=== PATIENT | male | born 1970 | race Caucasian/White ===

== ENCOUNTER 2020-09-27 09:04 | Outpatient (REF) | payer BC, SELFPAY ==
[2020-09-27 11:03] LABS: MANUAL DIFF FLAG NO
[2020-09-27 11:16] LABS: Basophils Absolute Auto 0.1 X10*3/uL (0.0-0.2); Basophils Percent Auto 1.1 % (0-2); Eosinophils Absolute Auto 0.2 X10*3/uL (0.0-0.4); Eosinophils Percent Auto 3.5 % (0-4); Hematocrit 46.4 % (42-52); Hemoglobin 15.8 g/dl (14.0-18.0); Imm Gran Abs Auto 0.02 X10*3/uL (0.00-0.03); Imm Gran Pct Auto 0.3 % (0.0-0.4); Lymphocytes Absolute Auto 2.7 X10*3/uL (1.2-4.9); Lymphocytes Percent Auto 42.1 % (20-40); Mean Corpuscular HGB Conc 34.1 g/dl (31.0-36.0); Mean Platelet Volume 12.8 fL (9.4-12.4); Monocytes Absolute Auto 0.5 X10*3/uL (0.1-1.2); Monocytes Percent Auto 7.6 % (2-11); Neutrophils Absolute Auto 2.9 X10*3/uL (2.0-8.3); Neutrophils Percent Auto 45.4 % (45-73); Platelet Count 161 X10*3/uL (160-400); White Blood Count 6.3 X10*3/uL (4.8-10.8)
[2020-09-27 11:48] LABS: Anion Gap 14 (12-20); Blood Urea Nitrogen 18 mg/dL (9-16); Calcium 9.2 mg/dL (8.4-10.2); Carbon Dioxide 27 mmol/L (22-29); Chloride 103 mmol/L (96-108); Cholesterol 199 mg/dL; Estimated Glomerular Filt Rate > 60; Glucose Fasting 195 mg/dL (60-99); HDL Cholesterol 50 mg/dL; LDL Cholesterol Calculated 123 mg/dl; Potassium 4.5 mmol/l (3.3-5.1); Sodium 139 mmol/L (135-145); Triglycerides 133 mg/dL
[2020-09-27 11:56] LABS: TSH reflex Free T4 0.59 mIU/mL (0.32-4.0)
== END 2020-09-27 09:05 | disposition home or self-care (01) ==
LOC: HO.HMGCLDS 09:04
PROVIDERS: PCP Internal Medicine; Visit Provider Internal Medicine
DX: R03.0 Elevated blood-pressure reading, without diagnosis of hypertension (principal); Z76.89 Persons encountering health services in other specified circumstances
CPT/HCPCS: 36415; 80048; 80061; 84443; 85025

== ENCOUNTER 2020-10-03 10:00 | Outpatient (REF) | payer BC, SELFPAY ==
[2020-10-03 11:30] LABS: Estimated Average Glucose 189 mg/dL; Hemoglobin A1c % 8.2 %
== END 2020-10-03 10:01 | disposition home or self-care (01) ==
LOC: HO.HMGCLDS 10:00
PROVIDERS: PCP Internal Medicine; Visit Provider Internal Medicine
DX: R73.01 Impaired fasting glucose (principal)
CPT/HCPCS: 83036

== ENCOUNTER 2021-03-18 10:26 | Outpatient (REF) | payer BC, SELFPAY ==
[2021-03-18 11:28] LABS: MANUAL DIFF FLAG NO
[2021-03-18 11:42] LABS: Basophils Absolute Auto 0.1 X10*3/uL (0.0-0.2); Basophils Percent Auto 0.7 % (0-2); Eosinophils Absolute Auto 0.2 X10*3/uL (0.0-0.4); Eosinophils Percent Auto 1.9 % (0-4); Hematocrit 46.8 % (42-52); Hemoglobin 16.1 g/dl (14.0-18.0); Imm Gran Abs Auto 0.03 X10*3/uL (0.00-0.03); Imm Gran Pct Auto 0.3 % (0.0-0.4); Lymphocytes Absolute Auto 2.3 X10*3/uL (1.2-4.9); Lymphocytes Percent Auto 26.4 % (20-40); Mean Corpuscular HGB Conc 34.4 g/dl (31.0-36.0); Mean Corpuscular Hemoglobin 30.3 pg (27.0-33.0); Mean Platelet Volume 12.9 fL (9.4-12.4); Monocytes Absolute Auto 0.4 X10*3/uL (0.1-1.2); Monocytes Percent Auto 4.7 % (2-11); Neutrophils Absolute Auto 5.8 X10*3/uL (2.0-8.3); Platelet Count 141 X10*3/uL (160-400); Red Blood Count 5.32 X10*6/uL (4.60-5.80); Red Cell Distribution Width 12.6 % (11.0-16.0); White Blood Count 8.7 X10*3/uL (4.8-10.8)
[2021-03-18 12:19] LABS: Alanine Aminotransferase 18 U/L (0-40); Albumin Level 4.4 g/dL (3.5-5.0); Alkaline Phosphatase 78 U/L (39-117); Anion Gap 16 (12-20); Aspartate Amino Transferase 17 U/L (5-37); Bilirubin Total 1.7 mg/dL (0.0-1.0); Blood Urea Nitrogen 18 mg/dL (9-16); Calcium 10.1 mg/dL (8.4-10.2); Carbon Dioxide 27 mmol/L (22-29); Chloride 101 mmol/L (96-108); Cholesterol 197 mg/dL; Estimated Glomerular Filt Rate > 60; Glucose Fasting 378 mg/dL (60-99); HDL Cholesterol 60 mg/dL; LDL Cholesterol Calculated 113 mg/dl; Potassium 4.6 mmol/L (3.3-5.1); Sodium 139 mmol/L (135-145); Total Protein 7.5 g/dL (6.5-8.0); Triglycerides 122 mg/dL
== END 2021-03-18 10:27 | disposition home or self-care (01) ==
LOC: HO.HMGCLDS 10:26
PROVIDERS: PCP Internal Medicine; Visit Provider Internal Medicine
DX: I10 Essential (primary) hypertension (principal); L29.9 Pruritus, unspecified; R21 Rash and other nonspecific skin eruption; R73.01 Impaired fasting glucose
CPT/HCPCS: 36415; 80053; 80061; 85025

== ENCOUNTER 2025-09-28 09:56 | Outpatient (REF) | payer BC, SELFPAY ==
--- OUTSIDE RECORDS SUMMARY | 2025-09-28 20:22 | XMS_ITS | Patient Health Record ---
Author Organization [facility] Address [address] [place] [address] Care Team Providers Care Roundsman Name Role Phone AGUSTO REY Primary Care Provider Karl Zhang Unavailable [phone] Allergies No Known Allergies Results Component Value Reference Range Notes Comp. Metabolic Panel (14)-3 [id number] Reviewed date:02/09/2025 01:49:10 PM Interpretation: Performing Lab:[facility], [address] [facility], [place], Phone - [phone], Director - Sharon Notes/Report: Glucose 120 70-99 mg/dL BUN 12 6-24 mg/dL Creatinine 1.03 0.76-1.27 mg/dL eGFR 85 >59 mL/min/1.73 BUN/Creatinine Ratio 12 9-20 Sodium 137 134-144 mmol/L Potassium 4.4 3.5-5.2 mmol/L Chloride 99 96-106 mmol/L Carbon Dioxide, Total 20 20-29 mmol/L Calcium 10.0 8.7-10.2 mg/dL Protein, Total 7.1 6.0-8.5 g/dL Albumin 4.6 3.8-4.9 g/dL Globulin, Total 2.5 1.5-4.5 g/dL Bilirubin, Total 0.5 0.0-1.2 mg/dL Alkaline Phosphatase 66 44-121 IU/L AST (SGOT) 18 0-40 IU/L ALT (SGPT) 15 0-44 IU/L Lipid Panel-[id number] Reviewed date:02/09/2025 01:49:19 PM Interpretation: Performing Lab:[facility] [address] [place] [address], Phone - [phone], [facility] Notes/Report: Cholesterol, Total 133 100-199 mg/dL Triglycerides 95 0-149 mg/dL HDL Cholesterol 52 >39 mg/dL VLDL Cholesterol Merrick 18 5-40 mg/dL LDL Chol Calc (NIH) 63 0-99 mg/dL TSH+Free [id number] Reviewed date:02/09/2025 01:49:27 PM Interpretation: Performing Lab:[facility] [address] [place] [address], Phone - [phone], Director - Berkleyy Notes/Report: TSH 1.730 0.450-4.500 uIU/mL T4,Free(Direct) 1.30 0.82-1.77 ng/dL Magnesium-[id number] Reviewed date:02/09/2025 11:13:45 AM Interpretation: Performing Lab:[facility] [address] [place] [address], Phone - [phone], Director - Sahron Notes/Report: Magnesium 2.3 1.6-2.3 mg/dL Hemoglobin [id number] Reviewed date:02/09/2025 11:13:37 AM Interpretation: Performing Lab:[facility] [address] [place] [address], Phone - [phone], Director - [facility] Notes/Report: Hemoglobin A1c 7.2 4.8-5.6 % . Prediabetes: 5.7 - 6.4 Diabetes: >6.4 Glycemic control for adults with diabetes: <7.0 Lipid Panel-[id number] Reviewed date:08/21/2025 07:41:14 AM Interpretation: Performing Lab:[facility] [address] [place] [address], Phone - [phone], Director - Berkleyy Notes/Report: Cholesterol, Total 138 100-199 mg/dL Triglycerides 131 0-149 mg/dL HDL Cholesterol 55 >39 mg/dL VLDL Cholesterol Merrick 23 5-40 mg/dL LDL Chol Calc (NIH) 60 0-99 mg/dL Albumin/Creatinine Ratio,Uri ne-[id number] Reviewed date:08/21/2025 07:41:12 AM Interpretation: Performing Lab:[facility] [address] [place] [address], Phone - [phone], Director - [facility] Notes/Report: Creatinine, Urine TNP Test not performed. Patient was unable to provide a self-collected specimen for the requested testing. The following test(s) were not performed: Albumin, Urine TNP Test not perf ormed Hemoglobin [id number] Reviewed date:08/21/2025 07:41:08 AM Interpretation: Performing Lab:[facility], [address] [facility], Phone - [phone], Director - Sharon Notes/Report: Hemoglobin A1c 7.1 4.8-5.6 % . Prediabetes: 5.7 - 6.4 Diabetes: >6.4 Glycemic control for adults with diabetes: <7.0 Request Problem TNP Test not performed. Patient was unable to provide a self-collected specimen for the requested testing. The following test(s) were not performed: TEST: [id number] Albumin/Creatinine Ratio,Urine PROSTATE SPECIFIC ANTIGEN DI AGNOSTIC Reviewed date:02/24/2025 11:49:13 AM Interpretation: Performing Lab: Notes/Report: The Siemens Advia Centaur Chemiluminescent Immunoassay is used. Results obtained with different assay methods or kits cannot be used interchangeably. Results cannot be interpreted as absolute evidence of the presence or absence of malignant disease. PSA 0.97 0.00-4.00 ng/mL Comp. Metabolic Panel (14)-3 [id number] Reviewed date:08/21/2025 07:41:23 AM Interpretation: Performing [facility], [address] [facility], Phone - [phone], Director - Sharon Notes/Report: Glucose 165 70-99 mg/dL BUN 13 6-24 mg/dL Creatinine 1.00 0.76-1.27 mg/dL eGFR 88 >59 mL/min/1.73 BUN/Creatinine Ratio 13 9-20 Sodium 135 134-144 mmol/L Potassium 4.6 3.5-5.2 mmol/L Chloride 97 96-106 mmol/L Carbon Dioxide, Total 24 20-29 mmol/L Calcium 10.4 8.7-10.2 mg/dL Protein, Total 7.5 6.0-8.5 g/dL Albumin 4.8 3.8-4.9 g/dL Globulin, Total 2.7 1.5-4.5 g/dL Bilirubin, Total 1.8 0.0-1.2 mg/dL Alkaline Phosphatase 67 47-123 IU/L AST (SGOT) 22 0-40 IU/L ALT (SGPT) 15 0-44 IU/L Comp. Metabolic Panel (14)-3 Reviewed date:11/19/2024 10:19:03 PM Interpretation: Performing Lab:[facility], [address] [place] [address], Phone - [phone], Director - [facility] Notes/Report: Glucose 122 70-99 mg/dL BUN 15 6-24 mg/dL Creatinine 1.06 0.76-1.27 mg/dL eGFR 82 >59 mL/min/1.73 BUN/Creatinine Ratio 14 9-20 Sodium 138 134-144 mmol/L Potassium 5.1 3.5-5.2 mmol/L Chloride 100 96-106 mmol/L Carbon Dioxide, Total 23 20-29 mmol/L Calcium 10.1 8.7-10.2 mg/dL Protein, Total 7.5 6.0-8.5 g/dL Albumin 4.6 3.8-4.9 g/dL Globulin, Total 2.9 1.5-4.5 g/dL Bilirubin, Total 0.8 0.0-1.2 mg/dL Alkaline Phosphatase 64 44-121 IU/L AST (SGOT) 21 0-40 IU/L ALT (SGPT) 12 0-44 IU/L Lipid Panel-[id number] Reviewed date:11/13/2024 10:50:24 PM Interpretation: Performing [facility], [address] [place] [address], Phone - [phone], Director - Berkleyy Notes/Report: Cholesterol, Total 117 100-199 mg/dL Triglycerides 95 0-149 mg/dL HDL Cholesterol 48 >39 mg/dL VLDL Cholesterol Merrick 18 5-40 mg/dL LDL Chol Calc (NIH) 51 0-99 mg/dL CBC With Differential/Platel et-[id number] Reviewed date:11/13/2024 10:51:27 PM Interpretation: Performing Lab:[facility], [address] [facility], Phone - [phone], Director - Berkleyy Notes/Report: WBC 7.1 3.4-10.8 x10E3/uL RBC 4.64 4.14-5.80 x10E6/uL Hemoglobin 13.5 13.0-17.7 g/dL Hematocrit 41.5 37.5-51.0 % MCV 89 79-97 fL MCH 29.1 26.6-33.0 pg MCHC 32.5 31.5-35.7 g/dL RDW 15.7 11.6-15.4 % Platelets 168 150-450 x10E3/uL Neutrophils 55 Not Estab. % Lymphs 33 Not Estab. % Monocytes 9 Not Estab. % Eos 2 Not Estab. % Basos 1 Not Estab. % Neutrophils (Absolute) 3.9 1.4-7.0 x10E3/uL Lymphs (Absolute) 2.3 0.7-3.1 x10E3/uL Monocytes(Absolute) 0.7 0.1-0.9 x10E3/uL Eos (Absolute) 0.1 0.0-0.4 x10E3/uL Baso (Absolute) 0.1 0.0-0.2 x10E3/uL Immature Granulocytes 0 Not Estab. % Immature Grans (Abs) 0.0 0.0-0.1 x10E3/uL Hemoglobin [id number] Reviewed date:12/05/2024 11:22:00 AM Interpretation: Performing Lab:[facility] [place], [address] [place] [address] Avenue, [place], Phone - [phone], Director - Sharon Notes/Report: Hemoglobin A1c 7.4 4.8-5.6 % . Prediabetes: 5.7 - 6.4 Diabetes: >6.4 Glycemic control for adults with diabetes: <7.0 Reason For Referral Reason ESS score of 4, stop Bang 5. Sleep study Diagnosis 1 Fatigue, unspecified type (R53.83) Referral Organization [facility] Referring Provider First Name Karl Referring Provider Last Name Leatha Referred Provider Specialty Sleep Medici ne General Notes Referral faxed to [facility]. Please call patient to Chel barry Christy 12/08/2024 09:53:57 AM > Referral Priority Routine Reason PLEASE EVALUATE AND TREAT Please evaluate and treat Diagnosis 1 Seasonal allergic rh initis due to pollen (J30.1) Referral Organization [facility] Referring Provider First Name Karl Referring Provider Last Name Leatha Referred Provider Specialty Dermatology General Notes Please call the rony ent to schedule the appointment, Encounter created and SMS sent to the pt.Clayton Charmain 05/23/2025 04:40:27 PM > Referral Priority Routine Reason Please evaluate and treat Please evaluate and treat Diagnosis 1 Gastritis, unspecifi ed, without bleeding (K29.70) Referral Organization [facility] Referring Provider First Name Tessieseveriano Referring Provider Last Name Leatha Referred Provider Specialty Gastroentero logy General Notes Please call the rony ent to schedule the appointment, Encounter created and SMS sent to the pt.Clayton Charmain 07/03/2025 03:34:08 PM > Referral Priority Routine Medications Medication SIG (Take, Route, Frequency, Duration) Notes Start Date End Date Status Metoprolol Succinate ER 25 MG 1 tablet Orally Once a day; Duration: 90 day(s) Not-Taking Fluticasone Propionate 50 MCG/ACT 1 spray in each nostril Nasally Twice a day; Duration: 30 days 11/10/2024 Not-Taking Albuterol Sulfate HFA 108 (90 Base) MCG/ACT 1 puff as needed Inhalation every 4 hrs; Duration: 30 days 11/10/2024 Not-Taking FreeStyle Lite w/Device check blood suga r once a day; Duration: 30 days 02/05/2022 Active Rosuvastatin Calcium 10 MG 1 tablet Orally Once a day; Duration: 30 days 08/07/2024 Active Farxiga 10 MG 1 tablet Orally Once a day; Duration: 30 days 08/07/2024 Active Lisinopril-hydroCHLOROthi azide 20-12.5 MG 1 tablet Orally Once a day; Duration: 90 days 08/14/2024 Active Benzonatate 100 MG 1 capsule as needed Orally Three times a day; Duration: 7 days 08/03/2024 Not-Taking Mucinex 600 MG 1 tablet as needed Orally every 12 hrs; Duration: 14 days 11/10/2024 Not-Taking metFORMIN HCl 1000 MG TAKE 1 TABLET BY M OUTH TWICE DAILY WITH A MEAL; Duration: 90 Active FreeStyle Lancets - 1 lancet once a day; Duration: 90 days 02/05/2022 Active FreeStyle Lite Test - 1 strip In Vitro o nce a day; Duration: 90 days 02/05/2022 Active Immunizations Vaccine Route Administration Date Status Comme nts Flublok 87974 IM Intramuscular 08/07/2024 Administered Tdap IM Intramuscular 05/27/2023 Administered Social History Tobacco Use: Social History Observation Description Date Details (start date - stop date) Former Smoker NA - NA Tobacco Use/Smoking Question Answer Notes Are you a former smoker How long has it been since you last smoked? 1-5 years Alcohol Screen (Audit-C) Question Answer Notes Did you have a drink contain ing alcohol in the past year? Yes How often did you have a dri nk containing alcohol in the past year? 2 to 4 times a month (2 points) How many drinks did you have on a typical day when you were drinking in the past year? 1 or 2 drinks (0 point) Points 2 Interpretation Negative Section Notes: Quit smoking 2020, sober sin ce 11/2021 Quit smoking 2020, sober sin ce 11/2021 Quit smoking 2020 Quit smoking 2020 Quit smoking 2020 Quit smoking 2020, sober sin ce 11/2021 Quit smoking 2020 Quit smoking 2020 Quit smoking 2020 Quit smoking 2020 Quit smoking 2020 Quit smoking 2020 Problems Problem Type SNOMED Code ICD Code Onset Dates Problem Status W/U Status Risk Notes Problem Type II diabetes mellitus without complication (578369677) Type 2 diabetes mellitus without complications (E11.9) Active confirmed Problem Chronic alcoholism in remission (173341635) Alcohol dependence, in remission (F10.21) Active confirmed Problem Essential hypertension (05489264) Essential (primary) hypertension (I10) Active confirmed Problem Gastroduodenitis (693950265) Gastritis, unspecified, without bleeding (K29.70) Active confirmed Problem Calculus of kidney (30527875) Calculus of kidney (N20.0) Active confirmed Problem Obstructive sleep apnea (35307875) Obstructive sleep apnea (G47.33) Active confirmed Problem Mixed hyperlipidemia (886009492) Hyperlipidemia, mixed (E78.2) Active confirmed Vital Signs Heart Rate 67 /min 08/22/2025 Temperature 97.6 degrees Fahrenheit 08/22/2025 Oximetry 99 % 08/22/2025 Blood pressure diastolic 64 mm Hg 08/22/2025 Height 72 in 08/22/2025 Blood pressure systolic 110 mm Hg 08/22/2025 Weight 190.71 lbs 08/22/2025 BMI 25.86 kg/m2 08/22/2025 Encounters Encounter Location Date Provider Diagnosis [address] [place] [address] 11/10/2024 Karl Martinesum Viral URI J06.9 ; Grade I hemorrhoids K64.0 ; Essential (primary) hypertension I10 and Type 2 diabetes mellitus without complications E11.[address] [place] [address] 12/07/2024 Ghadeer Aidanloum Type 2 diabetes mellitus without complications E11.9 ; Essential (primary) hypertension I10 ; Hyperlipidemia, mixed E78.2 ; Snoring R06.83 and Fatigue, unspecified type R53.[address] [place] [address] 02/08/2025 Ghadeseveriano Bermudezloum Type 2 diabetes mellitus without complications E11.9 ; Essential (primary) hypertension I10 ; Hyperlipidemia, mixed E78.2 ; Obstructive sleep apnea G47.33 and Palpitation R00.[address] [place] [address] 05/23/2025 Demondadeseveriano Bermudezloum Type 2 diabetes mellitus without complications E11.9 ; Essential (primary) hypertension I10 ; Hyperlipidemia, mixed E78.2 and Obstructive sleep apnea G47.[address] [place] [address] 08/22/2025 Demondadeer Aidanloum Type 2 diabetes mellitus without complications E11.9 ; Essential (primary) hypertension I10 ; Hyperlipidemia, mixed E78.2 and Obstructive sleep apnea G47.[address] [place] [address] 12/05/2024 [facility] Bermudez[facility]m [address] [place] [address] 12/07/2024 [facility] [address] [place] [address] 12/08/2024 LIZ GUL [address] [place] [address] 02/12/2025 AGUSTO REY [address] [place] [address] 05/10/2025 LIZNOAH RYE Type 2 diabetes mellitus without complications E11.[address] [place] [address] 05/23/[address] [place] [address] 07/03/[address] [place] [address] 08/22/2025 Karl Zhang Type 2 diabetes mellitus without complications E11.[address] [place] [address] 07/02/2025 Karl Zhang [address] [place] [address] 07/09/2025 AGUSTO REY Assessments Encounter Date Diagnosis (ICD Code) Assessment Notes Treatment Notes Treatment Clinical Notes Section Notes 11/10/2024 Viral URI (ICD-10 - J06.9) Mr. Medina is a 54-year-old gentleman with DM2, hypertension, seasonal allergies and alcohol dependence in remission here for cold sxs. Plan as follows: Viral URI: - Sxs are consistent with Viral URI. His sxs are improving. PE is unremarkable. Lungs CTAB. No facial tenderness. Ears with no signs of infection is noted. Started patient on mucinex, Albuterol and Fluticasone. If sxs worsen or last for more than 10 days then we will consider abx treatment Hemorrhoid: - Per record review, he has history of hemorrhoids. he endorses BRPR on wiping. He denies constipation. There was a question of rectum adenocarcinoma [place] but he states that he had Cscope with bx performed at [facility] and was negative. We will obtain record for review. Check CBC - STarted patient on Anusol cream. SItz bath is advised. Diet modification recommended. HTN: - Blood pressure is wnl. Continue on the same regimen. Check comp T2DM - Previous A1c of 7.9. Goal below 7. CHeck a1c and make adjustment accordingly. HLD: lipid panel abnormal, rosuvastatin was increased from 5 to 10 back in july 2024. Check lipid panel again. I have rendered the services for this patient under direct supervision of Dr. Rey, who did not see the patient but was available upon request 11/10/2024 Grade I hemorrhoids (ICD-10 - K64.0) Mr. Medina is a 54-year-old gentleman with DM2, hypertension, seasonal allergies and alcohol dependence in remission here for cold sxs. Plan as follows: Viral URI: - Sxs are consistent with Viral URI. His sxs are improving. PE is unremarkable. Lungs CTAB. No facial tenderness. Ears with no signs of infection is noted. Started patient on mucinex, Albuterol and Fluticasone. If sxs worsen or last for more than 10 days then we will consider abx treatment Hemorrhoid: - Per record review, he has history of hemorrhoids. he endorses BRPR on wiping. He denies constipation. There was a question of rectum adenocarcinoma [place] but he states that he had Cscope with bx performed at [facility] and was negative. We will obtain record for review. Check CBC - STarted patient on Anusol cream. SItz bath is advised. Diet modification recommended. HTN: - Blood pressure is wnl. Continue on the same regimen. Check comp T2DM - Previous A1c of 7.9. Goal below 7. CHeck a1c and make adjustment accordingly. HLD: lipid panel abnormal, rosuvastatin was increased from 5 to 10 back in july 2024. Check lipid panel again. I have rendered the services for this patient under direct supervision of Dr. Rey, who did not see the patient but was available upon request 12/07/2024 Type 2 diabetes mellitus without complications (ICD-10 - E11.9) Mr. Medina is a 54-year-old gentleman with DM2, hypertension, seasonal allergies and alcohol dependence in remission here to discuss Recent blood work. Plan as follows Type 2 diabetes - He has only been taking metformin 1000mg twice daily. He was offered the go but he thought that the medication is for hypertension thus he was continued on his own. His recent A1c is 7.4 previously was 7.7 which has improved. He is noncompliant with diet. I resumed patient On Farxiga benefits of the medication has been discussed. Follows with opthalm on regular basis. Foot care discussed. Check A1c in 3 months Hypertension - Blood pressure is well controlled. Continue same regimen. Advised salt intake with increasing hydration and weight loss Hyperlipidemia - LDL of 56. It is within goal. Continue on the same regimen Fatigue/snoring - ESS score of 4, STOP BANG of 5. Referred patient to sleep study to rule out obstructive sleep apnea. I would also rule out any vitamin deficiency, thyroid dysfunction. Recent CBC is within normal limits. I have rendered the services for this patient under direct supervision of Dr. Rey, who did not see the patient but was available upon request 02/08/2025 Type 2 diabetes mellitus without complications (ICD-10 - E11.9) Mr. Medina is a 54-year-old gentleman with DM2, hypertension, seasonal allergies and alcohol dependence in remission here for follow-up. Plan as follows Type 2 diabetes - He has only been taking metformin 1000mg twice daily and farxiga 10mg recent A1c is 7.4 previously was 7.7 which has improved. He is noncompliant with diet. Follows with opthalm on regular basis. Foot care discussed. Check A1c. Hypertension - Blood pressure is well controlled. Continue same regimen. Advised salt intake with increasing hydration and weight loss Hyperlipidemia - Previous lipid panel WNL. Continue on Rosuvastatin 10mg at bedtime SUN: - Patient is recommended to follow with sleep medicine clinic to obtain PAP machine. Compliance is recommended Palpitation: - EKG is done in the office today with heart rate of 63 bpm, sinus rhythm. No ST elevation or depression. No Bundle branch block. Will also obtain a thyroid and magnesium level. We will also get a Holter monitor test to rule out any arrhythmias. I have rendered the services for this patient under direct supervision of Dr. Rey, who did not see the patient but was available upon request 05/10/2025 Type 2 diabetes mellitus without complications (ICD-10 - E11.9) 05/23/2025 Type 2 diabetes mellitus without complications (ICD-10 - E11.9) Mr. Medina is a 54-year-old gentleman with DM2, hypertension, seasonal allergies and alcohol dependence in remission here for follow-up. Plan as follows Type 2 diabetes - Improved A1c of 7.2 and fasting blood glucose of 122. He is on the right medication. Continue Metformin 1000 mg twice a day as farxiga 10 mg once a day. I have discussed with the patient G LP 1 if A1c is above 7 However he is not interested at this point in adding any medication into his current regimen and who prefers to adjust his diet. I have discussed the complications of uncontrolled diabetes as patient does not seem to understand the seriousness of diabetes. We had a long discussion about Potential complications and treatment of this condition. He is noncompliant with diet. Follows with opthalm on regular basis. Foot care discussed. Check A1c. Hypertension - Blood pressure is well controlled. Continue same regimen. Advised salt intake with increasing hydration and weight loss Hyperlipidemia - Previous lipid panel WNL. Continue on Rosuvastatin 10mg at bedtime SUN: - Patient is recommended to follow with sleep medicine clinic to obtain Nasal cannula as he is not able to tolerate the CPAP. Compliance is recommended, Complications of SUN discussed I have rendered the services for this patient under direct supervision of Dr. Rey, who did not see the patient but was available upon request 08/22/2025 Type 2 diabetes mellitus without complications (ICD-10 - E11.9) 08/22/2025 Type 2 diabetes mellitus without complications (ICD-10 - E11.9) Mr. Medina is a 54-year-old gentleman with DM2, hypertension, seasonal allergies and alcohol dependence in remission here for follow-up. Plan as follows Type 2 diabetes - Improved A1c of 7.1. He is on the right medication. Continue Metformin 1000 mg twice a day as farxiga 10 mg once a day. He prefers to continue with diet modification. I have discussed the complications of uncontrolled diabetes as patient does not seem to understand the seriousness of diabetes. We had a long discussion about Potential complications and treatment of this condition. He is noncompliant with diet. Follows with opthalm on regular basis. Foot care discussed. Check A1c. Hypertension - Blood pressure is well controlled. Continue same regimen. Advised salt intake with increasing hydration and weight loss Hyperlipidemia - Previous lipid panel WNL. Continue on Rosuvastatin 10mg at bedtime SUN: - Patient is recommended to follow with sleep medicine clinic to obtain Nasal cannula as he is not able to tolerate the CPAP. Compliance is recommended, Complications of SUN discussed recent bloodwork discussed with the patient I have rendered the services for this patient under direct supervision of Dr. Rey, who did not see the patient but was available upon request 08/22/2025 Essential (primary) hypertension (ICD-10 - I10) Mr. Medina is a 54-year-old gentleman with DM2, hypertension, seasonal allergies and alcohol dependence in remission here for follow-up. Plan as follows Type 2 diabetes - Improved A1c of 7.1. He is on the right medication. Continue Metformin 1000 mg twice a day as farxiga 10 mg once a day. He prefers to continue with diet modification. I have discussed the complications of uncontrolled diabetes as patient does not seem to understand the seriousness of diabetes. We had a long discussion about Potential complications and treatment of this condition. He is noncompliant with diet. Follows with opthalm on regular basis. Foot care discussed. Check A1c. Hypertension - Blood pressure is well controlled. Continue same regimen. Advised salt intake with increasing hydration and weight loss Hyperlipidemia - Previous lipid panel WNL. Continue on Rosuvastatin 10mg at bedtime SUN: - Patient is recommended to follow with sleep medicine clinic to obtain Nasal cannula as he is not able to tolerate the CPAP. Compliance is recommended, Complications of SUN discussed recent bloodwork discussed with the patient I have rendered the services for this patient under direct supervision of Dr. Rey, who did not see the patient but was available upon request 05/23/2025 Essential (primary) hypertension (ICD-10 - I10) Mr. Medina is a 54-year-old gentleman with DM2, hypertension, seasonal allergies and alcohol dependence in remission here for follow-up. Plan as follows Type 2 diabetes - Improved A1c of 7.2 and fasting blood glucose of 122. He is on the right medication. Continue Metformin 1000 mg twice a day as farxiga 10 mg once a day. I have discussed with the patient G LP 1 if A1c is above 7 However he is not interested at this point in adding any medication into his current regimen and who prefers to adjust his diet. I have discussed the complications of uncontrolled diabetes as patient does not seem to understand the seriousness of diabetes. We had a long discussion about Potential complications and treatment of this condition. He is noncompliant with diet. Follows with opthalm on regular basis. Foot care discussed. Check A1c. Hypertension - Blood pressure is well controlled. Continue same regimen. Advised salt intake with increasing hydration and weight loss Hyperlipidemia - Previous lipid panel WNL. Continue on Rosuvastatin 10mg at bedtime SUN: - Patient is recommended to follow with sleep medicine clinic to obtain Nasal cannula as he is not able to tolerate the CPAP. Compliance is recommended, Complications of SUN discussed I have rendered the services for this patient under direct supervision of Dr. Rey, who did not see the patient but was available upon request 11/10/2024 Essential (primary) hypertension (ICD-10 - I10) Mr. Medina is a 54-year-old gentleman with DM2, hypertension, seasonal allergies and alcohol dependence in remission here for cold sxs. Plan as follows: Viral URI: - Sxs are consistent with Viral URI. His sxs are improving. PE is unremarkable. Lungs CTAB. No facial tenderness. Ears with no signs of infection is noted. Started patient on mucinex, Albuterol and Fluticasone. If sxs worsen or last for more than 10 days then we will consider abx treatment Hemorrhoid: - Per record review, he has history of hemorrhoids. he endorses BRPR on wiping. He denies constipation. There was a question of rectum adenocarcinoma [place] he states that he had Cscope with bx performed at [facility] and was negative. We will obtain record for review. Check CBC - STarted patient on Anusol cream. SItz bath is advised. Diet modification recommended. HTN: - Blood pressure is wnl. Continue on the same regimen. Check comp T2DM - Previous A1c of 7.9. Goal below 7. CHeck a1c and make adjustment accordingly. HLD: lipid panel abnormal, rosuvastatin was increased from 5 to 10 back in july 2024. Check lipid panel again. I have rendered the services for this patient under direct supervision of Dr. Rey, who did not see the patient but was available upon request 02/08/2025 Essential (primary) hypertension (ICD-10 - I10) Mr. Medina is a 54-year-old gentleman with DM2, hypertension, seasonal allergies and alcohol dependence in remission here for follow-up. Plan as follows Type 2 diabetes - He has only been taking metformin 1000mg twice daily and farxiga 10mg recent A1c is 7.4 previously was 7.7 which has improved. He is noncompliant with diet. Follows with opthalm on regular basis. Foot care discussed. Check A1c. Hypertension - Blood pressure is well controlled. Continue same regimen. Advised salt intake with increasing hydration and weight loss Hyperlipidemia - Previous lipid panel WNL. Continue on Rosuvastatin 10mg at bedtime SUN: - Patient is recommended to follow with sleep medicine clinic to obtain PAP machine. Compliance is recommended Palpitation: - EKG is done in the office today with heart rate of 63 bpm, sinus rhythm. No ST elevation or depression. No Bundle branch block. Will also obtain a thyroid and magnesium level. We will also get a Holter monitor test to rule out any arrhythmias. I have rendered the services for this patient under direct supervision of Dr. Rey, who did not see the patient but was available upon request 12/07/2024 Essential (primary) hypertension (ICD-10 - I10) Mr. Medina is a 54-year-old gentleman with DM2, hypertension, seasonal allergies and alcohol dependence in remission here to discuss Recent blood work. Plan as follows Type 2 diabetes - He has only been taking metformin 1000mg twice daily. He was offered the go but he thought that the medication is for hypertension thus he was continued on his own. His recent A1c is 7.4 previously was 7.7 which has improved. He is noncompliant with diet. I resumed patient On Farxiga benefits of the medication has been discussed. Follows with opthalm on regular basis. Foot care discussed. Check A1c in 3 months Hypertension - Blood pressure is well controlled. Continue same regimen. Advised salt intake with increasing hydration and weight loss Hyperlipidemia - LDL of 56. It is within goal. Continue on the same regimen Fatigue/snoring - ESS score of 4, STOP BANG of 5. Referred patient to sleep study to rule out obstructive sleep apnea. I would also rule out any vitamin deficiency, thyroid dysfunction. Recent CBC is within normal limits. I have rendered the services for this patient under direct supervision of Dr. Rey, who did not see the patient but was available upon request 11/10/2024 Type 2 diabetes mellitus without complications (ICD-10 - E11.9) Mr. Medina is a 54-year-old gentleman with DM2, hypertension, seasonal allergies and alcohol dependence in remission here for cold sxs. Plan as follows: Viral URI: - Sxs are consistent with Viral URI. His sxs are improving. PE is unremarkable. Lungs CTAB. No facial tenderness. Ears with no signs of infection is noted. Started patient on mucinex, Albuterol and Fluticasone. If sxs worsen or last for more than 10 days then we will consider abx treatment Hemorrhoid: - Per record review, he has history of hemorrhoids. he endorses BRPR on wiping. He denies constipation. There was a question of rectum adenocarcinoma [place] but he states that he had Cscope with bx performed at [facility] and was negative. We will obtain record for review. Check CBC - STarted patient on Anusol cream. SItz bath is advised. Diet modification recommended. HTN: - Blood pressure is wnl. Continue on the same regimen. Check comp T2DM - Previous A1c of 7.9. Goal below 7. CHeck a1c and make adjustment accordingly. HLD: lipid panel abnormal, rosuvastatin was increased from 5 to 10 back in july 2024. Check lipid panel again. I have rendered the services for this patient under direct supervision of Dr. Rey, who did not see the patient but was available upon request 12/07/2024 Hyperlipidemia, mixed (ICD-10 - E78.2) Mr. Medina is a 54-year-old gentleman with DM2, hypertension, seasonal allergies and alcohol dependence in remission here to discuss Recent blood work. Plan as follows Type 2 diabetes - He has only been taking metformin 1000mg twice daily. He was offered the go but he thought that the medication is for hypertension thus he was continued on his own. His recent A1c is 7.4 previously was 7.7 which has improved. He is noncompliant with diet. I resumed patient On Farxiga benefits of the medication has been discussed. Follows with opthalm on regular basis. Foot care discussed. Check A1c in 3 months Hypertension - Blood pressure is well controlled. Continue same regimen. Advised salt intake with increasing hydration and weight loss Hyperlipidemia - LDL of 56. It is within goal. Continue on the same regimen Fatigue/snoring - ESS score of 4, STOP BANG of 5. Referred patient to sleep study to rule out obstructive sleep apnea. I would also rule out any vitamin deficiency, thyroid dysfunction. Recent CBC is within normal limits. I have rendered the services for this patient under direct supervision of Dr. Rey, who did not see the patient but was available upon request 02/08/2025 Hyperlipidemia, mixed (ICD-10 - E78.2) Mr. Medina is a 54-year-old gentleman with DM2, hypertension, seasonal allergies and alcohol dependence in remission here for follow-up. Plan as follows Type 2 diabetes - He has only been taking metformin 1000mg twice daily and farxiga 10mg recent A1c is 7.4 previously was 7.7 which has improved. He is noncompliant with diet. Follows with opthalm on regular basis. Foot care discussed. Check A1c. Hypertension - Blood pressure is well controlled. Continue same regimen. Advised salt intake with increasing hydration and weight loss Hyperlipidemia - Previous lipid panel WNL. Continue on Rosuvastatin 10mg at bedtime SUN: - Patient is recommended to follow with sleep medicine clinic to obtain PAP machine. Compliance is recommended Palpitation: - EKG is done in the office today with heart rate of 63 bpm, sinus rhythm. No ST elevation or depression. No Bundle branch block. Will also obtain a thyroid and magnesium level. We will also get a Holter monitor test to rule out any arrhythmias. I have rendered the services for this patient under direct supervision of Dr. Rey, who did not see the patient but was available upon request 08/22/2025 Hyperlipidemia, mixed (ICD-10 - E78.2) Mr. Medina is a 54-year-old gentleman with DM2, hypertension, seasonal allergies and alcohol dependence in remission here for follow-up. Plan as follows Type 2 diabetes - Improved A1c of 7.1. He is on the right medication. Continue Metformin 1000 mg twice a day as farxiga 10 mg once a day. He prefers to continue with diet modification. I have discussed the complications of uncontrolled diabetes as patient does not seem to understand the seriousness of diabetes. We had a long discussion about Potential complications and treatment of this condition. He is noncompliant with diet. Follows with opthalm on regular basis. Foot care discussed. Check A1c. Hypertension - Blood pressure is well controlled. Continue same regimen. Advised salt intake with increasing hydration and weight loss Hyperlipidemia - Previous lipid panel WNL. Continue on Rosuvastatin 10mg at bedtime SUN: - Patient is recommended to follow with sleep medicine clinic to obtain Nasal cannula as he is not able to tolerate the CPAP. Compliance is recommended, Complications of SUN discussed recent bloodwork discussed with the patient I have rendered the services for this patient under direct supervision of Dr. Rey, who did not see the patient but was available upon request 05/23/2025 Hyperlipidemia, mixed (ICD-10 - E78.2) Mr. Medina is a 54-year-old gentleman with DM2, hypertension, seasonal allergies and alcohol dependence in remission here for follow-up. Plan as follows Type 2 diabetes - Improved A1c of 7.2 and fasting blood glucose of 122. He is on the right medication. Continue Metformin 1000 mg twice a day as farxiga 10 mg once a day. I have discussed with the patient G LP 1 if A1c is above 7 However he is not interested at this point in adding any medication into his current regimen and who prefers to adjust his diet. I have discussed the complications of uncontrolled diabetes as patient does not seem to understand the seriousness of diabetes. We had a long discussion about Potential complications and treatment of this condition. He is noncompliant with diet. Follows with opthalm on regular basis. Foot care discussed. Check A1c. Hypertension - Blood pressure is well controlled. Continue same regimen. Advised salt intake with increasing hydration and weight loss Hyperlipidemia - Previous lipid panel WNL. Continue on Rosuvastatin 10mg at bedtime SUN: - Patient is recommended to follow with sleep medicine clinic to obtain Nasal cannula as he is not able to tolerate the CPAP. Compliance is recommended, Complications of SUN discussed I have rendered the services for this patient under direct supervision of Dr. Rey, who did not see the patient but was available upon request 08/22/2025 Obstructive sleep apnea (ICD-10 - G47.33) Mr. Medina is a 54-year-old gentleman with DM2, hypertension, seasonal allergies and alcohol dependence in remission here for follow-up. Plan as follows Type 2 diabetes - Improved A1c of 7.1. He is on the right medication. Continue Metformin 1000 mg twice a day as farxiga 10 mg once a day. He prefers to continue with diet modification. I have discussed the complications of uncontrolled diabetes as patient does not seem to understand the seriousness of diabetes. We had a long discussion about Potential complications and treatment of this condition. He is noncompliant with diet. Follows with opthalm on regular basis. Foot care discussed. Check A1c. Hypertension - Blood pressure is well controlled. Continue same regimen. Advised salt intake with increasing hydration and weight loss Hyperlipidemia - Previous lipid panel WNL. Continue on Rosuvastatin 10mg at bedtime SUN: - Patient is recommended to follow with sleep medicine clinic to obtain Nasal cannula as he is not able to tolerate the CPAP. Compliance is recommended, Complications of SUN discussed recent bloodwork discussed with the patient I have rendered the services for this patient under direct supervision of Dr. Rey, who did not see the patient but was available upon request 05/23/2025 Obstructive sleep apnea (ICD-10 - G47.33) Mr. Medina is a 54-year-old gentleman with DM2, hypertension, seasonal allergies and alcohol dependence in remission here for follow-up. Plan as follows Type 2 diabetes - Improved A1c of 7.2 and fasting blood glucose of 122. He is on the right medication. Continue Metformin 1000 mg twice a day as farxiga 10 mg once a day. I have discussed with the patient G LP 1 if A1c is above 7 However he is not interested at this point in adding any medication into his current regimen and who prefers to adjust his diet. I have discussed the complications of uncontrolled diabetes as patient does not seem to understand the seriousness of diabetes. We had a long discussion about Potential complications and treatment of this condition. He is noncompliant with diet. Follows with opthalm on regular basis. Foot care discussed. Check A1c. Hypertension - Blood pressure is well controlled. Continue same regimen. Advised salt intake with increasing hydration and weight loss Hyperlipidemia - Previous lipid panel WNL. Continue on Rosuvastatin 10mg at bedtime SUN: - Patient is recommended to follow with sleep medicine clinic to obtain Nasal cannula as he is not able to tolerate the CPAP. Compliance is recommended, Complications of SUN discussed I have rendered the services for this patient under direct supervision of Dr. Rey, who did not see the patient but was available upon request 12/07/2024 Snoring (ICD-10 - R06.83) Mr. Medina is a 54-year-old gentleman with DM2, hypertension, seasonal allergies and alcohol dependence in remission here to discuss Recent blood work. Plan as follows Type 2 diabetes - He has only been taking metformin 1000mg twice daily. He was offered the go but he thought that the medication is for hypertension thus he was continued on his own. His recent A1c is 7.4 previously was 7.7 which has improved. He is noncompliant with diet. I resumed patient On Farxiga benefits of the medication has been discussed. Follows with opthalm on regular basis. Foot care discussed. Check A1c in 3 months Hypertension - Blood pressure is well controlled. Continue same regimen. Advised salt intake with increasing hydration and weight loss Hyperlipidemia - LDL of 56. It is within goal. Continue on the same regimen Fatigue/snoring - ESS score of 4, STOP BANG of 5. Referred patient to sleep study to rule out obstructive sleep apnea. I would also rule out any vitamin deficiency, thyroid dysfunction. Recent CBC is within normal limits. I have rendered the services for this patient under direct supervision of Dr. Rey, who did not see the patient but was available upon request 02/08/2025 Obstructive sleep apnea (ICD-10 - G47.33) Mr. Medina is a 54-year-old gentleman with DM2, hypertension, seasonal allergies and alcohol dependence in remission here for follow-up. Plan as follows Type 2 diabetes - He has only been taking metformin 1000mg twice daily and farxiga 10mg recent A1c is 7.4 previously was 7.7 which has improved. He is noncompliant with diet. Follows with opthalm on regular basis. Foot care discussed. Check A1c. Hypertension - Blood pressure is well controlled. Continue same regimen. Advised salt intake with increasing hydration and weight loss Hyperlipidemia - Previous lipid panel WNL. Continue on Rosuvastatin 10mg at bedtime SUN: - Patient is recommended to follow with sleep medicine clinic to obtain PAP machine. Compliance is recommended Palpitation: - EKG is done in the office today with heart rate of 63 bpm, sinus rhythm. No ST elevation or depression. No Bundle branch block. Will also obtain a thyroid and magnesium level. We will also get a Holter monitor test to rule out any arrhythmias. I have rendered the services for this patient under direct supervision of Dr. Rey, who did not see the patient but was available upon request 02/08/2025 Palpitation (ICD-10 - R00.2) Mr. Medina is a 54-year-old gentleman with DM2, hypertension, seasonal allergies and alcohol dependence in remission here for follow-up. Plan as follows Type 2 diabetes - He has only been taking metformin 1000mg twice daily and farxiga 10mg recent A1c is 7.4 previously was 7.7 which has improved. He is noncompliant with diet. Follows with opthalm on regular basis. Foot care discussed. Check A1c. Hypertension - Blood pressure is well controlled. Continue same regimen. Advised salt intake with increasing hydration and weight loss Hyperlipidemia - Previous lipid panel WNL. Continue on Rosuvastatin 10mg at bedtime SUN: - Patient is recommended to follow with sleep medicine clinic to obtain PAP machine. Compliance is recommended Palpitation: - EKG is done in the office today with heart rate of 63 bpm, sinus rhythm. No ST elevation or depression. No Bundle branch block. Will also obtain a thyroid and magnesium level. We will also get a Holter monitor test to rule out any arrhythmias. I have rendered the services for this patient under direct supervision of Dr. Rey, who did not see the patient but was available upon request 12/07/2024 Fatigue, unspecified type (ICD-10 - R53.83) Mr. Medina is a 54-year-old gentleman with DM2, hypertension, seasonal allergies and alcohol dependence in remission here to discuss Recent blood work. Plan as follows Type 2 diabetes - He has only been taking metformin 1000mg twice daily. He was offered the go but he thought that the medication is for hypertension thus he was continued on his own. His recent A1c is 7.4 previously was 7.7 which has improved. He is noncompliant with diet. I resumed patient On Farxiga benefits of the medication has been discussed. Follows with opthalm on regular basis. Foot care discussed. Check A1c in 3 months Hypertension - Blood pressure is well controlled. Continue same regimen. Advised salt intake with increasing hydration and weight loss Hyperlipidemia - LDL of 56. It is within goal. Continue on the same regimen Fatigue/snoring - ESS score of 4, STOP BANG of 5. Referred patient to sleep study to rule out obstructive sleep apnea. I would also rule out any vitamin deficiency, thyroid dysfunction. Recent CBC is within normal limits. I have rendered the services for this patient under direct supervision of Dr. Rey, who did not see the patient but was available upon request Plan Of Treatment Pending Test Test Name Order Date 24 Holter 02/08/2025 HEMOGLOBIN A1C 07/09/2022 Vitamin B12 and Folate-[id number] 12/07/2024 Hemoglobin Z1p-[id number] 12/07/2024 Hemoglobin S0r-[id number] 05/23/2025 Vitamin D, 67-Bqiyqwa-[id number] 12/07/2024 CBC/Differential (No Platelet)-[id number] TSH+Free [id number] 12/07/2024 Lipid Panel-[id number] 05/23/2025 Comp. Metabolic Panel (14)-[id number] 2024 Methylmalonic Acid, Serum-[id number] 025 Homocyst(e)ine-[id number] 12/07/2024 Hemoglobin A1c 02/09/2024 Next Appt Details Provider Name:Karl Shine irene, 11/21/2025 11:00:00 AM, [address] [place] [address], [phone], Insurance Providers Payer Name Payer Address Payer Phone Subscriber Number Group Number Insured Name Patient Relationship to Insured Coverage Start Date Coverage End Date [facility] [address] [place] [address] [id number] Palmer Medina Self - patient is the insured Medical (General) History Medical History History ICD Code alcohol dependence Hypertension seasonal allergies New onset DM2 Calculus of kidney Surgical History Surgery Date(Month/Year) laser surgery for kidney stones, right s aristides 12/2022
--- OUTSIDE RECORDS SUMMARY | 2025-09-28 20:22 | XMS_ITS | Encounter Summary ---
Author Organization [facility] Address [address] [place] [address] Care Team Providers Care Concrete Technician Name Role Phone Wanda Stuart MD Primary Care Provider [phone] Encounter Details Date Type Department Care Team (Late st Contact Info) Description 02/23/2025 Lab Requisition [facility] - Main Lab [address] [facility] [place] [address] Jer Hdez PA [address] [address] Benign prostatic hyperplasia without lower urinary tract symptoms Social History Tobacco Use Types Packs/Day Years Used Date Smoking Tobacco: Never Assessed Sex and Gender Information Value Date Recorded Sex Assigned at Not on file Legal Sex Male 1:25 PM EST Gender Identity Not on file Sexual Orientation Not on file documented as of this encounter Plan of Treatment Not on file documented as of this encounter Procedures Procedure Name Priority Date/Time Associated Diagnosis Comments PROSTATE SPECIFIC ANTIGEN DIAGNOSTIC Routine 02/23/2025 10:07 AM EDT Benign prostatic hyperplasia without lower urinary tract symptoms documented in this encounter Results * Prostate specific antigen diagnostic (02/23/2025 10:07 AM EDT) PSA 0.97 0.00 - 4.00 ng/mL LAB CHEMISTRY METHOD 02/23/2025 3:32 PM EDT [facility] Blood Venous blood specimen / Unknown 02/23/2025 10:07 AM EDT 02/23/2025 2:33 PM EDT Narrative [facility] - 02/23/2025 3:32 PM EDT The Siemens Advia Centaur Chemiluminescent Immunoassay is used. Results obtained with different assay methods or kits cannot be used interchangeably. Results cannot be interpreted as absolute evidence of the presence or absence of malignant disease. us Jer WATT LAB BLOOD ORDERABLES Final Resul t [facility] ([facility]) [facility] [address] [place] [address], documented in this encounter Visit Diagnoses Diagnosis Benign prostatic hyperplasia without lower urinary tract symptoms documented in this encounter Care Teams Concrete Technician Relationship Specialty Start Date End Date Wanda Stuart MD [address] [place] [id number] PCP - General Internal Medicine 02/23/25 documented as of this encounter
--- OUTSIDE RECORDS SUMMARY | 2025-09-28 20:22 | XMS_ITS | Clinical Summary ---
Author Organization [address] [facility] Address [address] [place] [address] Phone Care Team Providers Care Spot Facer Name Role Phone Wanda Stuart MD Primary Care Provider [phone] Social History Tobacco Use Types Packs/Day Years Used Date Smoking Tobacco: Never Assessed Sex and Gender Information Value Date Recorded Sex Assigned at Not on file Legal Sex Male 1:25 PM EST Gender Identity Not on file Sexual Orientation Not on file Plan of Treatment Health Maintenance Due Date Last Done Comments Colorectal Cancer Screening: Colonoscopy 1968 DTaP,Tdap,and Td Vaccines (1 - Tdap) 1987 Hepatitis B Vaccines (1 of 3 - 19+ 3-dose series) 1987 Pneumococcal Vaccine: 50+ Ye ars (1 of 1 - PCV) 2018 Zoster Vaccines (1 of 2) 2018 Cholesterol Screening (Lipid Panel) 09/15/2022 HIV Screening 09/15/2022 Hepatitis C Screening 09/15/2022 Social Influencers of Health Screening 09/15/2022 Depression Screening 10/18/2024 COVID-19 Vaccine (1 - 2024-2 6 season) 2025 Influenza Vaccine (#1) 2025 RSV Immunization Adult Patie nts (1 - 1-dose 75+ series) 2043 HIB Vaccines Aged Out No longer eligi ble based on patient's age to complete this topic HPV Vaccines Aged Out No longer eligi ble based on patient's age to complete this topic Hepatitis A Vaccines Aged Out No long er eligible based on patient's age to complete this topic IPV Vaccines Aged Out No longer eligi ble based on patient's age to complete this topic MMR Vaccines Aged Out No longer eligi ble based on patient's age to complete this topic Meningococcal ACWY Vaccine Aged Out N o longer eligible based on patient's age to complete this topic Meningococcal B Vaccine Aged Out No l onger eligible based on patient's age to complete this topic RSV Immunization Patients Un jass 20 months Aged Out No longer eligible b ased on patient's age to complete this topic Varicella Vaccines Aged Out No longer eligible based on patient's age to complete this topic Insurance [facility] Care Teams Spot Facer Relationship Specialty Start Date End Date Wanda Stuart MD [address] [place] [address] PCP - General Internal Medicine 02/23/25
--- OUTSIDE RECORDS SUMMARY | 2025-09-28 20:22 | XMS_ITS | Encounter Summary ---
Author Organization [facility] Address [address] [place] [address] [place] [address] Phone Care Team Providers Care Operations Research Engineer Name Role Phone Arias Langston MD Primary Care Provider Maude Duke MD Primary Care Provid er Encounter Details Date Type Department Care Team (Latest Contact Info) Description 08/29/2018 Ancillary Orders Virtual Department [address] [place] [phone] Arias Langston MD [address] [place] [phone] [email or web address] Thyrotoxicosis without thyroid storm, unspecified thyrotoxicosis type Social History Tobacco Use Types Packs/Day Years Used Date Smoking Tobacco: Never Assessed Sex and Gender Information Value Date Recorded Sex Assigned at Male 05/07/2024 8:11 AM EDT Legal Sex Male 10:30 AM EST Gender Identity Male 05/07/2024 8:11 AM EDT Sexual Orientation Not on file documented as of this encounter Plan of Treatment Not on file documented as of this encounter Results * NM Thyroid Uptake and Scan I123 (09/16/2018 8:24 AM EST) Anatomical Region Laterality Modality Neck Nuclear Medicine 09/16/2018 11:3 0 AM EST Impressions 09/16/2018 11:35 AM EST Normal appearance of the thyroid gland without hot or cold nodule seen. Normal 24-hour uptake of iodine in the thyroid bed of 19.62%. S/S: Thyrotoxicosis POS - [id number] Narrative 09/16/2018 11:35 AM EST DOSE: 299 uCi I-123 COMPARISON: None FINDINGS: The thyroid gland appears homogeneous without dominant hot or cold nodules. 24-hour uptake over the thyroid bed is 19.62% which is within the range of normal. Procedure Note Jonnie Fernandez MD - 09/16/2018 DOSE: 299 uCi I-123 COMPARISON: None FINDINGS: The thyroid gland appears homogeneous without dominant hot or coldnodules. 24-hour uptake over the thyroid bed is 19.62% which is within the range ofnormal. IMPRESSION: Normal appearance of the thyroid gland without hot or cold nodule seen.Normal 24-hour uptake of iodine in the thyroid bed of 19.62%. 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 It is not the complete legal health record.[facility]
--- OUTSIDE RECORDS SUMMARY | 2025-09-28 20:22 | XMS_ITS | Clinical Summary ---
Author Organization [facility] Address [address] [facility] [address] [place] [phone] Phone Care Team Providers Care Customer Service Administrator Name Role Phone Unavailable Primary Care Provider Unavailabl e Allergies No known active allergies Medications lisinopril (PRINIVIL,ZESTRI L) 5 MG tablet Take 5 mg by mouth daily. 04/19/2024 Active metFORMIN (GLUCOPHAGE) 1000 MG tablet Take 1,000 mg by mouth daily with breakfast. 02/24/2024 Active metoprolol succinate (TOPROL-XL) 25 MG 24 hr tablet Take 25 mg by mouth daily. 04/19/2024 Active Active Problems Problem Noted Date Diagnosed Date Primary hypertension 05/07/2024 Assessment & Plan (05/07/2024 1:25 PM EDT): Holding antihypertensives, likely restart after he is able to show be stable approximately 24 hours after surgery Controlled type 2 diabetes m noemy without complication, without long-term current use of insulin 05/07/2024 Assessment & Plan (05/07/2024 1:26 PM EDT): Takes metformin monotherapy at home Check A1c in the morning Will plan on insulin sliding scale without long-acting insulin Goal glucose 140 to 180 mg/dL while inpatient Resolved Problems Problem Noted Date Diagnosed Date Resolved Date Nephrolithiasis 05/07/2024 05/08/2024 Assessment & Plan (05/07/2024 1:32 PM EDT): Likely requires intervention for 8 mm ureteric stone seen on CT scan. Urinalysis without evidence of hematuria. Serum creatinine is elevated, see acute renal failure problem Urology following planning on operative intervention this afternoon No indication for antibiotics at this time, however if he becomes febrile or has leukocytosis, low threshold to start Zosyn. Pain management with opioids Ondansetron for antiemesis He received IV fluids, continue LR at 75 mill per hour Stone analysis after surgery Recommend increasing fluid intake at home Limit dietary intake of sodium and protein If has calcium oxalate stones, avoid oxalate rich foods including spinach and nuts If has uric acid stones, limit purine intake such as red meat and shellfish Has not been on thiazide diuretics Referral to dietary Acute renal failure due to u rinary obstruction 05/07/2024 05/08/2024 Assessment & Plan (05/07/2024 1:27 PM EDT): Due to 8 mm ureteric stone Urology following Monitor creatinine daily Left ureteral stone 05/07/2024 05/08/20 24 Immunizations Immunization Administration Dates Next Due COVID-19 (Pre-08/09) [employer] Vaccine, mRNA, PF ,02/19/2021 Family History Medical History Relation Comments No Known Problems Brother No Known Problems Daughter Cancer Father No Known Problems Maternal Aunt No Known Problems Maternal Grandfather No Known Problems Maternal Grandmother No Known Problems Maternal Uncle Cancer Mother No Known Problems Paternal Aunt No Known Problems Paternal Grandfather No Known Problems Paternal Grandmother No Known Problems Paternal Uncle No Known Problems Sister No Known Problems Son No Known Problems Unspecified Anxiety disorder Neg Hx Arthritis Neg Hx defects Neg Hx Breast cancer Neg Hx Colon cancer Neg Hx Colonic polyp Neg Hx Dementia Neg Hx Depression Neg Hx Diabetes Neg Hx Drug use disorder Neg Hx Early Neg Hx Heart disease Neg Hx Hyperlipidemia Neg Hx Hypertension Neg Hx Inflammatory bowel disease Neg Hx Kidney disease Neg Hx Learning disabilities Neg Hx Melanoma Neg Hx Miscarriages / Stillbirths Neg Hx Osteoporosis Neg Hx Ovarian cancer Neg Hx Prostate cancer Neg Hx Psychiatric disorder Neg Hx Steroid dependence Neg Hx Stroke Neg Hx Thyroid disease Neg Hx Vision loss Neg Hx Relation Status Comments Brother Daughter Father Maternal Aunt Maternal Grandfather Maternal Grandmother Maternal Uncle Mother Paternal Aunt Paternal Grandfather Paternal Grandmother Paternal Uncle Sister Son Unspecified Social History Tobacco Use Types Packs/Day Years Used Date Smoking Tobacco: Never Smokeless Tobacco: Never Tobacco Cessation:Counseling Given: No Alcohol Use Standard Drinks/Week Comments Never 0 (1 standard drink = 0.6 oz pur e alcohol) Education Answer Date Recorded Are you interested in more education? Not on rené e 02/12/2023 Are you concerned about learning? Not on file 02/12/2023 No 02/12/2023 No 02/12/2023 Digital Access Answer Date Recorded No 03/13/2023 No 03/13/2023 Reliable internet access at home? Not on file 03/13/2023 Device with a working camera? Not on file Intimate Partner Violence Answer Date R ecorded Are you denied basic needs s uch as food, clothing, or medical care? No 08/02/2024 In the past 12 months have y ou been in a relationship with a person who hurts, threatens, or tries to control you? No 08/02/2024 Are you denied basic needs s uch as food, clothing, or medical care? No 08/02/2024 In the past 12 months have y ou been in a relationship with a person who hurts, threatens, or tries to control you? No 08/02/2024 Sex and Gender Information Value Date Recorded Sex Assigned at Male 05/07/2024 8:11 AM EDT Legal Sex Male 10:30 AM EST Gender Identity Male 05/07/2024 8:11 AM EDT Sexual Orientation Not on file Last Filed Vital Signs Vital Sign Reading Time Taken Comments Blood Pressure 153/80 08/02/2024 7:43 PM EDT Pulse 74 08/02/2024 7:43 PM EDT Temperature 36.7 C (98 F) 08/02/2024 7:43 PM EDT Respiratory Rate 18 08/02/2024 7:43 PM EDT Oxygen Saturation 98% 08/02/2024 7:43 PM EDT Inhaled Oxygen Concentration - - Weight 83.9 kg (185 lb) 05/07/2024 8:09 AM EDT Height 172.7 cm (5' 8 ) 05/07/2024 8:09 AM EDT Body Mass Index 28.13 05/07/2024 8:09 AM EDT Plan of Treatment Health Maintenance Due Date Last Done Comments BLOOD PRESSURE 1968 HEMOGLOBIN A1C 1968 DEPRESSION SCREENING 1980 HEPATITIS C SCREENING 1986 HIV ONE-TIME SCREENING (18-6 5 YEARS) 1986 LIPID PANEL 1986 PNEUMOCOCCAL VACCINES (50+ years) (1 of 2 - PCV) 1987 COLOGUARD 2013 COLONOSCOPY 2013 COLORECTAL CANCER SCREENING 2013 FIT TEST 2013 FOBT 2013 SIGMOIDOSCOPY 2013 VIRTUAL COLONOSCOPY 2013 ZOSTER VACCINES (1 of 2) 2018 DIABETIC EYE EXAM 05/07/2024 INFLUENZA VACCINE (#1) 2025 07/25/2018 COVID-19 VACCINE (3 - 2024-2 6 season) 2025 03/13/2021, 02/19/2021 CREATININE LEVEL 08/02/2025 08/02/2024, 05/08/2024, 05/07/2024 POTASSIUM LEVEL 08/02/2025 08/02/2024, 05/08/2024, 05/07/2024 Adult Td,Tdap Booster 07/25/2028 07/25/2018 RSV VACCINE (1 - 1-dose 75+ series) 2043 SMOKING STATUS SCREENING (On ce After 26 Yrs) Completed 05/07/2024 HEPATITIS A VACCINES Aged Out No long er eligible based on patient's age to complete this topic HIB VACCINES Aged Out No longer eligi ble based on patient's age to complete this topic MENINGOCOCCAL VACCINES (ACWY) Aged Out No longer eligible based on patient's age to complete this topic MENINGOCOCCAL VACCINES (B) Aged Out N o longer eligible based on patient's age to complete this topic Medical Devices Implanted Type Area Micro Photographer Device Identifier Shelf Expiration Date Model / Serial / Lot Stent Ureteral [id number] To 30cm Double Pigtail Suture Stretch Vl Positioner - [id number] Implanted:Qty: 1 on 05/07/2024 by Fermín Chow MD at [facility] Left: Ureter [employer] 05/13/2026 [id number] / / [id number] Procedures Procedure Name Priority Date/Time Associated Diagnosis Comments BASIC METABOLIC PANEL (BMP) STAT 08/02/2024 5:43 PM EDT from Last 3 Months or Most Recently Relevant to Health Maintenance Results * (ABNORMAL) Basic metabolic panel (08/02/2024 5:43 PM EDT) SODIUM 136 133 - 146 mmol/L [facility] CHLORIDE 104 96 - 108 mmol/L [facility] POTASSIUM 4.1 3.3 - 5.1 mmol/L [facility] CO2 23 21 - 35 mmol/L [facility] BUN 15 6 - 19 mg/dL [facility] CREATININE 1.00 0.5 - 1.5 mg/dL [facility] GLUCOSE 170(H) 70 - 99 mg/dL [facility] CALCIUM 9.7 8.4 - 10.3 mg/dL [facility] EGFR 89 >59 mL/min/1.7 3m2 [facility] Comment:Estimated glomerular filtration rate calculated using the CKD-EPI refit equation. ANION GAP 13 10 - 20 mmol/L [facility] Blood 08/02/2024 5:43 PM EDT 08/02/2024 5:52 PM EDT us Eryn Gilmore PA-C LAB BLOOD BKR ORDERABLES Fin al Result [facility] [address] [place], [place] [phone] from Last 3 Months or Most Recently Relevant to Health Maintenance [place] [address] [place] [address] OUT OF STATE PPO BLUE [place] OUT OF STATE PPO BLUE [place] [facility] PPO BLUE [place] OUT OF STATE PPO BLUE [place] OUT OF STATE PPO [place]UE [place] OUT OF STATE PPO [place]UE [place] OUT OF STATE PPO [place]UE [place] OUT [facility] PPO Advance Directives For more information, please contact: [phone] (9AM - 5PM [facility], Wednesday-Wednesday) * Full Code (Latest Code Status on File) Date Activated Date Inactivated Comments 05/07/2024 2:34 PM Question Answer Comments Code Status Confirmed With: Patient Additional Source Comments The information contained in this document represents components of the legal health record. It is not the complete legal health record.[facility]
--- OUTSIDE RECORDS SUMMARY | 2025-09-28 20:22 | XMS_ITS | Encounter Summary ---
Author Organization [facility] Address [address] [place] [place] [address] Phone Care Team Providers Care Final Application Reviewer Name Role Phone Maude Duke MD Primary Care Provid er Encounter Details Date Type Department Care Team (Late st Contact Info) Description 05/07/2024 Procedure Pass [facility], Ct Scan - [address] [phone] Social History Tobacco Use Types Packs/Day Years Used Date Smoking Tobacco: Never Smokeless Tobacco: Never Alcohol Use Standard Drinks/Week Comments Never 0 [...] with a working camera? Not on file Sex and Gender Information Value Date Recorded Sex Assigned at Male 05/07/2024 8:11 AM EDT Legal Sex Male 10:30 AM EST Gender Identity Male 05/07/2024 8:11 AM EDT Sexual Orientation Not on file documented as of this encounter Functional Status * Calculated C-SSRS Risk Score (Lifetime/Recent) Answer Date of Assessment Author No Risk Indicated 05/07/2024 8:50 AM EDT Cassie Myers RN * [place] Suicide Severity Rating Scale (Screener/Recent Self-Report) Question Answer Date of Assessment Author 1. Wish to be (Past 1 Month) No 05/07/2024 8:50 AM EDT Cassie Myers ae, RN 2. Non-Specific Active Suici charissa Thoughts (Past 1 Month) No 05/07/2024 8:50 AM EDT Shahla Myers RN 6. Suicidal Behavior (Lifetime) No 8:50 AM EDT Cassie Myers RN documented as of this encounter Plan of Treatment Not on file documented as of this encounter Visit Diagnoses Not on filedocumented in this encounter Care Teams Final Application Reviewer Relationship Specialty Start Date End Date Maude Duke MD [address] [place] [phone] [email or web address] PCP - General Family Medicine 12/01/21 1 10/22/23 documented as of this encounter Additional Source Comments The information contained in this document represents components of the legal health record. It is not the complete legal health record.[facility]
--- OUTSIDE RECORDS SUMMARY | 2025-09-28 20:23 | XMS_ITS | Encounter Summary ---
Author Organization [facility] Address [address] [facility] [address] [place] [address] Phone Care Team Providers Care Booster Pump Operator Name Role Phone Maude Duke MD Primary Care Provid er Encounter Details Date Type Department Care Team (Late st Contact Info) Description 05/07/2024 Procedure Pass [place] Admitting Dept - Virtual Department [address] [place] [address] Social History Tobacco Use Types Packs/Day Years [...] 8:50 AM EDT Cassie Myers RN * [place] Suicide Severity Rating Scale (Screener/Recent Self-Report) Question [...] on filedocumented in this encounter Care Teams Booster Pump Operator Relationship Specialty Start Date End Date Maude Duke MD [address] [place] [phone] [email or web address] PCP - General Family Medicine 12/01/21 1 10/22/23 documented as of this encounter Additional Source Comments The information contained in this document represents components of the legal health record. It is not the complete legal health record.[facility]
== END 2025-09-28 09:57 | disposition home or self-care (01) ==
LOC: HO.LNP 09:56
PROVIDERS: PCP Internal Medicine; Visit Provider Nurse Practitioner
DX: K21.9 Gastro-esophageal reflux disease without esophagitis (principal); R13.10 Dysphagia, unspecified
CPT/HCPCS: 83013

== ENCOUNTER 2025-09-28 09:56 | Outpatient (AMB) | payer BC, SELFPAY ==
--- NOTE | 2025-09-28 10:03 | MHC.OFFVIS ---
Vital Signs 09/28/25 10:04 Height 5 ft 8 in Weight 187 lb BMI 28.4 Blood Pressure Location Lt brachial Position Sitting Intake Visit Reasons: Gastro ref- Gastritis, unspecified, without bleedi Intake Note: New patient in office today for gastritis. CC: Patient c/o discomfort from throat, sore throat, a lot of burping, acid reflux. Onset of symptoms 7-8 months ago. He reports daily BM with help of suppositories. Front Office Director Required: No Accompanied by: Allergies No Known Allergies Allergy (Verified 09/28/25 10:11) HPI HPI Gastro ref- Gastritis, unspecified, without bleedi: Details: 55-year-old male here for initial evaluation of GERD. He is referred by [facility] in [place].. PMX SUN Obesity Hypertension Diabetes nephrolithiasis * SURGICAL HISTORY * ALLERGIES: NKDA * [employer] LABS: 01/2025: Labs from PCP unremarkable CBC, unremarkable renal and hepatic panels, last A1c 7.2% in January 2025. TODAY'S VISIT [facility] Medical History (Updated 09/28/25 @ 10:37 by ELI Roger) Elevated blood pressure reading Impaired fasting blood sugar Colon cancer screening Establishing care with new doctor, encounter for Encounter for general adult medical examination with abnormal findings Pharyngitis Hypertension, essential Surgical History (Updated 09/28/25 @ 10:23 by ELI Roger) Status post laser lithotripsy of ureteral calculus H/O colonoscopy Family History Mother Stomach cancer Father Brain cancer Social History Alcohol intake: never Patient Tobacco Use Status: Former Tobacco user Tobacco use type: Cigarette Years Smoked: 18 years e-Cigarette/Vaping Use: Former Use Review of Systems Const Denies fatigue, Denies fever(s), Denies night sweats, Denies poor appetite and Denies weight loss ENT Reports Normal hearing present, Denies dysphagia, Reports odynophagia, Denies throat swelling and Denies tongue swelling Card Reports no additional complaints Resp Reports no additional complaints GI Details: Denies abdominal pain, Denies melena, Denies bloating, Denies hematochezia, Reports constipation, Denies GI cramping, Denies dysphagia, Denies excessive flatus, Denies early satiety, Reports heartburn, Denies diarrhea, Denies nausea, Reports odynophagia, Denies vomiting and Denies hematemesis Skin/Breast Denies pruritus, Denies lesions, Denies rash and Denies jaundice Neuro Reports Normal hearing present and Denies Abnormal speech present Endo Denies fatigue Aller/Immun Denies throat swelling and Denies tongue swelling Physical Exam Vital Signs: BMI result Body Mass Index 28.4 Const General: cooperative, no acute distress, well developed and well groomed Nutritional Appearance: well nourished and obese centrally obese Orientation/consciousness: oriented to person, oriented to place and oriented to time Limitations: language barrier (SPEAKS [place] WITH SOME MILD difficulties) HEENT Head: Yes normocephalic and Yes atraumatic Eyes General: appearance normal, both eyes and all related structures Pupils: Equal, round and reactive pupils present Neck Neck: Yes normal visual inspection and Yes no lymphadenopathy Thyroid: Thyroid normal Resp Effort & Inspection: normal respiratory effort and able to speak in complete sentences Auscultation: clear to auscultation bilaterally Cardio Rate: regular rate Rhythm: regular rhythm Heart sounds: Normal, physiologic split S2 sound present Peripheral pulses: radial pulses present and posterior tibial pulses present GI Inspection: No distended, No Abdominal panniculus present and Yes obesity Palpation (GI): Soft to palpation, nontender, no guarding, not rigid and No hepatosplenomegaly present Percussion: Yes normal to percussion Auscultation: normal bowel sounds Rectal Exam - Male: Yes deferred Skin General skin exam: no rashes or lesions noted, turgor normal, skin not dry, no jaundice, No spider nevi and no striae Rashes: no rashes Nails: normal Neuro General: oriented to person, oriented to place and oriented to time Cranial nerves: Yes Equal, round and reactive pupils present and Yes Normal hearing present Speech: No Abnormal speech present Extrem General: Yes normal to inspection, No clubbing, No cyanosis and No edema Psych Appearance: grossly normal and well kempt Mental Status: mental status grossly normal Speech and movement: Normal speech and movement present Affect: normal affect Attitude: cooperative Thought process: Normal thought process present and not confabulating Thought content: Normal thought content present Insight: Fair insight present (Psych) Judgement: Fair judgement present (Psych) Assessment & Plan Assessment & Plan (1) GERD (gastroesophageal reflux disease): Code(s): K21.9 - Gastro-esophageal reflux disease without esophagitis Category: Medical (2) Odynophagia: Code(s): R13.10 - Dysphagia, unspecified Category: Medical Plan Subjective Patient presents for evaluation of upper GI symptoms. He reports throat discomfort with a sensation of food sticking above the collarbone even with small portions, without odynophagia or true pain, associated with frequent noisy burping and a hot/burning sensation in the upper throat and chest suggestive of reflux. No nausea or vomiting. Bowel movements are constipated; he uses glycerin suppositories and senna tea to facilitate bowel movements. No rectal bleeding or abdominal pain. Symptoms began 3?4 months after he quit smoking; prior several years he vaped. He self-treated previously with antibiotics (tetracycline) without benefit. He notes hemorrhoids. He denies recent significant weight change. Relevant Past Medical, Social, and Family History - Quit smoking ~14 months ago; prior vaping history. Past heavier alcohol use acknowledged. - Family history: mother with stomach cancer; sister with gastritis-like complaints. - Prior colonoscopy reportedly negative except for hemorrhoids. Objective - Face became markedly flushed following H. pylori test administration in clinic, later resolved. - Neck: No palpable cervical lymphadenopathy on external exam. - Lungs: Auscultation performed; no abnormal findings voiced during exam. - Abdomen: Hypoactive/quiet bowel sounds consistent with constipation; non-tender; no right upper quadrant tenderness. - Extremities: Mild asymmetric swelling noted on the left with visible varicose veins. - Prior testing: Colonoscopy 2023 [facility] at outside facility reported as negative except for hemorrhoids. Assessment & Plan Esophageal/throat discomfort with dysphagia sensation and reflux symptoms: Clinical picture consistent with gastroesophageal reflux disease with globus/dysphagia sensation. H. pylori infection is strongly suspected given symptom profile and marked flushing after in-office H. pylori test; differential includes hiatal or paraesophageal hernia and other structural esophageal pathology. - Start omeprazole twice daily (morning and before supper) for symptom control and acid suppression. - Await H. pylori test result; if positive, staff will call with antibiotic regimen and instructions. Recommend obtaining an [id number] probiotic supplement to take during antibiotic therapy to reduce risk of diarrhea or rash. - Upper endoscopy ordered/scheduled to evaluate the esophagus and stomach; may cancel if H. pylori is confirmed and symptoms resolve with treatment. - If H. pylori testing is negative and symptoms persist, plan barium swallow to evaluate for hiatal or paraesophageal hernia. - Counseling provided regarding H. pylori epidemiology (food-borne, not [id number]) and its association with peptic ulcer disease and gastric cancer; discussed family history relevance. - Follow-up in 10 weeks; earlier if worsening symptoms or new concerns. Constipation with hemorrhoids: Chronic constipation managed with glycerin suppositories and senna tea. Exam consistent with decreased bowel activity; no pain or bleeding reported. - Continue current measures as needed. Monitor for changes; address further if symptoms worsen or bleeding occurs. Orders: Orders H Pylori Breath Test Today Referrals GI Procedure Notification K21.9 - Gastro-esophageal reflux disease without esophagitis, R13.10 - Dysphagia, unspecified Medications: New omeprazole 20 mg PO BID 60 caps 6RF 30 days K21.9 - Gastro-esophageal reflux disease without esophagitis, R13.10 - Dysphagia, unspecified Coding Level of Care Code New Pt Level 3 (79439) Diagnoses GERD (gastroesophageal reflux disease) K21.9 Odynophagia R13.10
[2025-09-28 10:04] VITALS: BMI 28.4
== END 2025-09-28 10:46 | disposition home or self-care (01) ==
LOC: HO.HGI 09:57
PROVIDERS: PCP Internal Medicine; Visit Provider Nurse Practitioner
DX: K21.9 Gastro-esophageal reflux disease without esophagitis (principal); R13.10 Dysphagia, unspecified
CPT/HCPCS: 99203